=== PATIENT | male | born 1935 | race Caucasian/White ===

== ENCOUNTER 2016-11-05 12:55 | Emergency (ER) | payer OTHER, MEDICARE ==
[2016-11-05 13:07] VITALS: BP 123/78
[2016-11-05 13:19] LABS: ABSOLUTE BASOPHIL COUNT 0 /CUMM (0.0-0.2); ABSOLUTE EOSINOPHIL COUNT 0.1 /CUMM (0.0-0.7); ABSOLUTE GRANULOCYTE CT 4.2 /CUMM (1.4-6.5); ABSOLUTE LYMPH COUNT 1.6 /CUMM (1.2-3.4); ABSOLUTE MONOCYTE COUNT 0.5 /CUMM (0.10-0.60); BASOPHIL % 0.3 % (0.0-2.0); GRANULOCYTE % 65.6 % (42.2-75.2); HEMATOCRIT 44.6 % (42-52); MEAN CORPUSCULAR HGB CONC 33.9 G/DL (33.0-37.0); MEAN CORPUSCULAR VOLUME 85.7 FL (80.0-94.0); MEAN PLATELET VOLUME 7.7 FL (7.4-10.4); PLATELET COUNT 219 /CUMM (130-400); RBC DISTRIBUTION WIDTH 14.8 % (11.5-14.5); RED BLOOD CELL CT 5.21 /CUMM (4.70-6.10); WHITE BLOOD CELL COUNT 6.4 /CUMM (4.8-10.8)
--- NOTE | 2016-11-05 14:01 | ED CARDIAC/CP/PALPITATIONS ---
History of Present Illness General Chief Complaint: Chest Pain Stated Complaint: CP Source: patient Exam Limitations: no limitations Vital Signs & Intake/Output Vital Signs & Intake/Output Vital Signs Date Time Temp Pulse Resp B/P Pulse O2 O2 Flow FiO2 Ox Delivery Rate 11/05 1307 98.1 74 20 123/78 99 Room Air Allergies Coded Allergies: NO KNOWN ALLERGIES (07/10/13) Triage Note: PT PRESENTS TO ER C/O OF HAVING "CHEST FLUTTERS" EARLIER TODAY. PT STATES HE HAS NO PAIN AT THIS TIME AND DOES NOT FEELING ANY PALPITATONS. PT STATES HE TOOK VIAGRA YESTERDAY AND IS CONCERNED IT MIGHT HAVE AFFECTED HIM. EKG DONE ON ARRIVAL. PT HAS HYPOTHYROID AND GERD HX Triage Nurses Notes Reviewed? yes Onset: Abrupt Duration: hour(s): (1) Timing: single episode today Location: left chest Activities at Onset: none Prior Chest Pain/Card Workup: H/O AFIB Aspirin Today: no aspirin today HPI: This is a 80-year-old male with history of hypothyroidism, GERD who presents to the ER with chief complaint of a sensation of vibration in his left chest. Symptoms of been on and off for the past 6 months. Yesterday he felt a sensation approximately a few minutes. He is a family history of A. fib and wanted to make sure he wasn't in A. fib today. Denies any chest pain or shortness of breath. No current symptoms at this time. He is physically active and walks about 1-1-1/2 hours daily. He states only one time in the last several months to be feel that short of breath and last 15 minutes. No rn intern currently but had a stress test many years ago in fear for which was normal. He is a nonsmoker and nondrinker. He saw his doctor yesterday and noted to have a TSH that was elevated. His PCP is due to increase his Synthroid dose. Past History Travel History Traveled to [place] past 21 day No Medical History Any Pertinent Medical History? see below for history Cardiovascular: AFIB Gastrointestinal: GERD Endocrine: hypothyroidism Surgical History Surgical History: non-contributory Psychosocial History What is your primary language Syriac Tobacco Use: Never used Family History Hx Contributory? No Review of Systems Review of Systems Constitutional: Denies: chills, fever. EENTM: Reports: no symptoms. Respiratory: Denies: cough, short of breath. Cardiovascular: Reports: see HPI (VIBRATION SENSE), palpitations. Denies: chest pain. GI: Denies: abdominal pain. Genitourinary: Reports: no symptoms. Musculoskeletal: Reports: no symptoms. Skin: Reports: no symptoms. Neurological/Psychological: Reports: no symptoms. Hematologic/Endocrine: Denies: bruising, bleeding, polyuria, polydipsia. Immunologic/Allergic: Denies: splenectomy. All Other Systems: Reviewed and Negative Physical Exam Physical Exam General Appearance: well developed/nourished, alert, awake, anxious Head: atraumatic, normal appearance Eyes: Bilateral: normal appearance, PERRL, EOMI. Ears, Nose, Throat: normal pharynx, normal ENT inspection Neck: normal inspection, supple, full range of motion Respiratory: normal breath sounds Cardiovascular: regular rate/rhythm, bradycardia Peripheral Pulses: 2+ radial (R), 2+ radial (L) Gastrointestinal: normal bowel sounds, soft, non-tender Back: normal inspection, normal range of motion Extremities: normal inspection, normal capillary refill, normal range of motion, no edema Neurologic/Psych: no motor/sensory deficits, awake, alert, oriented x 3 Skin: intact, normal color, warm/dry Core Measures ACS in differential dx? No Severe Sepsis Present: No Septic Shock Present: No Progress Differential Diagnosis: AMI, atrial fibrillation, myocarditis, pericarditis, pulmonary embolism, PVCs/PACs, unstable angina, V-fib/V-Tach Plan of Care: Orders Procedure Date/time Status TROPONIN LEVEL 11/05 1306 Complete COMPREHENSIVE METABOLIC PANEL 11/05 1306 Complete CBC WITHOUT DIFFERENTIAL 11/05 1306 Complete EKG 11/05 1257 Active Laboratory Tests 11/05/16 1314: Anion Gap 8, Estimated GFR > 60, BUN/Creatinine Ratio 17.3, Glucose 101 H, Calcium 8.7, Total Bilirubin 0.6, AST 20, ALT 30, Alkaline Phosphatase 63, Troponin I < 0.01, Total Protein 6.5, Albumin 3.6, Globulin 2.9, Albumin/ Globulin Ratio 1.2, CBC w Diff NO MAN DIFF REQ, RBC 5.21, MCV 85.7, MCH 29.0, RDW 14.8 H, MPV 7.7, Gran % 65.6, Lymphocytes % 24.6, Monocytes % 8.5, Eosinophils % 1.0, Basophils % 0.3, Absolute Granulocytes 4.2, Absolute Lymphocytes 1.6, Absolute Monocytes 0.5, Absolute Eosinophils 0.1, Absolute Basophils 0, PUBS MCHC 33.9 Patient NSR on monitor and EKG. Labs WNL. Patient states he feels better knowing that he is not in Afib. (ANTONIO SIN,JONATHAN) Initial ED EKG: NSR Prior EKG: unchanged Rhythm Strip: normal sinus rhythm Departure Departure Time of Disposition: 1422 Disposition: HOME OR SELF CARE Condition: Stable Clinical Impression Primary Impression: Heart palpitations Referrals: KATHRYN SIN,MARTHA Pisano (PCP/Family) Additional Instructions: Follow up with the rn intern in [place] for outpatient holter monitor for your symptoms. Return to the ER for any changing or worsening symptoms. Departure Forms: Customer Survey General Discharge Information Critical Care Note Critical Care Note Critical Care Time: non-applicable ED Attending Observation Initial Observation Note: I have seen and personally examined EMIR COOL on 11/15/16 at 2150. I agree with the current emergency department documentation. The disposition (admission or discharge) is uncertain at this time, he needs a period of observation for the following reason(s): The ED Nurse caring for this patient has been personally informed as to what the patient is being observed for.
== END 2016-11-05 14:28 ==
LOC: ERH 12:55
PROVIDERS: Emergency Medicine
DX: R00.2 Palpitations (principal)
CPT/HCPCS: 93005; 93010